=== PATIENT | female | born 1950 | race Caucasian/White ===

== ENCOUNTER 2018-02-03 13:00 | Outpatient (RCR) | payer MEDICARE ==
[~2018-02-03 13:00] MED LIST: Z ZYRTEC; Z.0.ADVAIR 250-501 E; Z.0.PRILOSEC40 MG; Z.0.XANAX0.25 MG; celebrex
--- NOTE | 2018-02-05 09:05 | Diagnostic Imaging Report ---
#[id number] - MGSCRBIL #BILATERAL DIGITAL SCREENING MAMMOGRAM WITH CAD: 01/22/2018 CLINICAL: Routine screening. No prior exams were available for comparison. Current study contains 4 films. There are scattered fibroglandular elements in both breasts. Current study was also evaluated with a Computer Aided Detection (CAD) system. There is a benign calcification in the right breast. No significant masses, calcifications, or other findings are seen in either breast. IMPRESSION: BENIGN There is no mammographic evidence of malignancy. A 1 year screening mammogram is recommended. The patient will be notified by letter of the results. Alexandr norwood/jose:02/04/2018 16:31:27 Senior Network Engineer: Rajani RITTER)(Zen), [facility] letter sent: Normal Exam Mammogram BI-RADS: 2 Benign
== END 2018-02-05 ==
LOC: PT 13:00
PROVIDERS: ATTEND Specialist
DX: M75.121 Complete rotator cuff tear or rupture of right shoulder, not specified as traumatic (principal); M25.511 Pain in right shoulder; M54.2 Cervicalgia; M62.81 Muscle weakness (generalized)
CPT/HCPCS: 77067; 97010; 97110 ×3; 97162; G8984; G8985 ×2; G8986

== ENCOUNTER 2019-12-14 11:52 | Emergency (ER) | payer MEDICARE ==
[~2019-12-14] VITALS: Ht 167.6 cm; Wt 131.5 kg
--- OUTSIDE RECORDS SUMMARY | 2019-12-14 12:22 | XMS REPORT | Continuity of Care Document ---
Author Author [facility] Organization [facility] Address [address] [place] [address] [place] [id number] Phone Unavailable Care Team Providers Care Parts Driver Name Role Phone PASTORA BOLAND Unavailable Problems This patient has no known problems. Allergies, Adverse Reactions, Alerts This patient has no known allergies or adverse reactions. Medications This patient has no known medications. Procedures This patient has no known procedures. Results Test Description Test Time Test Comments Results Result Comments Source MAMMOGRAPHY DIGITAL SCR BILAT 2018-01-22 15:06:00 [place] [address] Patient Name: ANNABEL JIMENEZ MR #: [id number] : 1950 Age/Sex: 67/F Req #: [id number] Adm Physician: Ordered by: EFREN BOYLE DO Report #: [id number] Location: Room/Bed: Procedure: [id number] MG/MAMMOGRAPHY DIGITAL SCR BILAT Exam Date: 01/22/18 Exam Time: 1426 REPORT STATUS: Signed #[id number] - MGSCRBIL #BILATERAL DIGITAL SCREENING MAMMOGRAM WITH CAD: 01/22/2018 CLINICAL: Routine screening. No prior exams were available for comparison. Current study contains 4 films. There are scattered fibroglandular elements in both breasts. Current study was also evaluated with a Computer Aided Detection (CAD) system. There is a benign calcification in the right breast. No significant masses, calcifications, or other findings are seen in either breast. IMPRESSION: BENIGN There is no mammographic evidence of malignancy. A 1 year screening mammogram is recommended. The patient will be notified by letter of the results. Ami norwood/kirby:02/04/2018 16:31:27 Jet Inspector: Rajani RITTER)(Zen), [facility] letter sent: Normal Exam Mammogram BI-RADS: 2 Benign Dictated By: AMI COTE DO [id number] Transcribed By: KIRBY on 02/04/18 1631 COPY TO: EFREN BOYLE DO
[2019-12-14] MEDS ORDERED: PREDNISONE20 MG PO (12:27)
[2019-12-14] MEDS ORDERED: GABAPENTIN300 MG PO (12:27)
[2019-12-14] MEDS ORDERED: VALTREX500 MG PO (12:27)
[2019-12-14] MEDS ORDERED: ULTRAM50 MG PO (12:27)
[2019-12-14] MEDS ORDERED: VALACYCLOVIR HCL 500 MG TAB PO ONE (12:30)
[2019-12-14] MEDS ORDERED: PREDNISONE 20 MG TAB PO ONE (12:30)
[2019-12-14] MEDS ORDERED: HYDROCODONE/APAP 10MG-325MG TAB PO ONE (12:30)
[2019-12-14] MEDS ORDERED: GABAPENTIN 300 MG CAP PO ONE (12:30)
[2019-12-14 12:42] VITALS: BP 143/75
--- NOTE | 2019-12-14 12:42 | Emergency Department Note ---
History of Present Illnes History of Present Illness Chief Complaint: Skin Rash or Abscess History of Present Illness This is a 69 year old female arrived to the ED with complaints with of rash that wraps under her breast along her back- pt describes the rash as stabbing in nurture. Historian: Patient Arrival Mode: Car Onset (how long ago): day(s) Radiation: Reports non-radiation Severity: mild Duration (how long): day(s) Timing of current episode: constant Progression: worsening Chronicity: new Context: Denies recent illness, Denies recent surgery Past Medical/Family History Physician Review I have reviewed the patient's past medical and family history. Any updates have been documented here. Past Medical History Recent Fever: No Clinical Suspicion of Infectio: No New/Unexplained Change in Ment: No Past Medical History: Diabetes, Anxiety, Hyperlipedemia Other Surgery: lithrotripsy Tonsillectomy Kidney Stent Social History Smoking Cessation: Never Smoker Counseling Performed: No Alcohol Use: None Any Illegal Drug Use: No Physically hurt or threatened: No Other Last Tetanus: Unknown Any Pre-Existing Lines (PICC,: No Physical Exam Related Data Allergies: Coded Allergies: Sulfa (Sulfonamide Antibiotics) (Verified Allergy, Unknown, 12/14/19) Triage Vital Signs Vital Signs Date Time Temp Pulse Resp B/P (MAP) Pulse Ox O2 Delivery O2 Flow Rate FiO2 12/14/19 12:03 97.7 103 16 157/86 100 Room Air Vital signs reviewed: Yes Physical Exam CONSTITUTIONAL Constitutional: Present well-developed, Present well-nourished HENT HENT: Present normocephalic, Present atraumatic, Present oropharynx clear/moist, Present nose normal HENT L/R: Present left ext ear normal, Present right ext ear normal EYES Eyes: Reports PERRL, Reports conjunctivae normal NECK Neck: Present ROM normal PULMONARY Pulmonary: Present effort normal, Present breath sounds normal CARDIOVASCULAR Cardiovascular: Present regular rhythm, Present heart sounds normal, Present capillary refill normal, Present normal rate GASTROINTESTINAL Abdominal: Present soft, Present nontender, Present bowel sounds normal GENITOURINARY Genitourinary: Present exam deferred SKIN Skin: Present warm, Present rash (herpetic rash noted in a dermatomal distribtion ) MUSCULOSKELETAL Musculoskeletal: Present ROM normal NEUROLOGICAL Neurological: Present alert, Present oriented x 3, Present no gross motor or sensory deficits PSYCHOLOGICAL Psychological: Present mood/affect normal, Present judgement normal Assessment & Plan Medical Decision Making MDM 69 F arrived to the ED with complaints of a rash over her back- rash c/w shingles, no superimposed infection. Pt d/c-ed on valtrex, steroids and gabapentin. Red flags for return given Assessment & Plan Final Impression: (1) Herpes zoster Depart Disposition: HOME, SELF-CARE Last Vital Signs Date Time Temp Pulse Resp B/P (MAP) Pulse Ox O2 Delivery O2 Flow Rate FiO2 12/14/19 12:03 97.7 103 16 157/86 100 Room Air Home Meds Active Scripts Valacyclovir Hcl (VALTREX) 500 Mg Tab, 1000 MG PO TID, #21 TAB Prov:VIC NUR DO 12/14/19 Tramadol Hcl (ULTRAM) 50 Mg Tablet, 50 MG PO Q6HR PRN for Mild Pain (1-3) or Fever>100.8, #12 TAB Prov:VIC NUR DO 12/14/19 Gabapentin (GABAPENTIN) 300 Mg Capsule, 300 MG PO BID, #60 CAP Prov:VIC NUR, 12/14/19 Prednisone (PREDNISONE) 20 Mg Tab, 40 MG PO DAILY, #4 TAB Prov:VIC NUR DO 12/14/19 Reported Medications Cetirizine Hcl (Zyrtec) 10 Mg Tab.rapdis, daily prn 08/25/11 Medications in the ED Acetaminophen/ Hydrocodone Bitart 1 ea ONCE ONCE PO ; Start 12/14/19 at 12:30; Stop 12/14/19 at 12:31; Status DC Gabapentin 300 mg ONCE ONCE PO ; Start 12/14/19 at 12:30; Stop 12/14/19 at 12:31; Status DC Valacyclovir HCl 1,000 mg ONCE ONCE PO ; Start 12/14/19 at 12:30; Stop 12/14/19 at 12:31; Status DC Prednisone 40 mg ONCE ONCE PO ; Start 12/14/19 at 12:30; Stop 12/14/19 at 12:31; Status DC VIC NUR DO Dec 14, 2019 12:42
[2019-12-14] MEDS ORDERED: FENTANYL 50 MCG/HR PATCH TOP SCH (13:45)
--- NOTE | 2019-12-14 13:45 | NUR ---
PT HAS HAD DC ORDER, HOWEVER REBECA SIMONS STATES MED WATCH PT. NOW TO ORDER [facility] PATCH FOR PT. PENDING FROM PHARMACY, REASSESSMENT, THEN PLAN TO DC HOME
== END 2019-12-14 14:06 | disposition home or self-care (01) ==
LOC: ER 12:19
DX: B02.9 Zoster without complications (principal); E11.9 Type 2 diabetes mellitus without complications; E78.5 Hyperlipidemia, unspecified; F41.9 Anxiety disorder, unspecified
CPT/HCPCS: 99282; J7512